=== PATIENT | female | born 1990 | race Hispanic/Latino ===

== ENCOUNTER 2019-09-24 16:27 | Inpatient (IN) | payer BC ==
[2019-09-24] MEDS ORDERED: BUTORPHANOL 1 MG/ML INJ IV PRN (17:29)
[2019-09-24] MEDS ORDERED: Ringers Lactate 1,000 ML IV PRN (17:29)
[2019-09-24] MEDS ORDERED: CARBOPROST TROME 250 MCG/ML IM PRN (17:29)
[2019-09-24] MEDS ORDERED: METHYLERGONOVINE 0.2MG/ML AMP IM PRN (17:29)
[2019-09-24] MEDS ORDERED: PROMETHAZINE INJ 25 MG/ML AMP IM PRN (17:29)
[2019-09-24] MEDS ORDERED: Ringers Lactate 1,000 ML IV SCH (18:00)
[2019-09-24] MEDS ORDERED: OXYTOCIN/LR 20 UNIT/1,000 ML BAG IV SCH (18:00)
[2019-09-24 18:17] VITALS: BMI 29.9
[2019-09-24 18:17] LABS: Absolute Lymphocytes (CBC) 1.9 K/uL (0.7-4.9); Basophils % 0.4 % (0-1.3); Hematocrit 34.5 % (36.0-45.0); Lymphocytes % 17.7 % (15.3-44.8); MPV 9.7 fL (7.6-11.3); RBC Red Blood Cell Count 3.78 M/uL (3.86-4.86)
[2019-09-24 18:27] LABS: Urine Appearance CLEAR; Urine Bilirubin NEGATIVE (NEG); Urine Blood NEGATIVE (NEG); Urine Color YELLOW; Urine Glucose NEGATIVE (NEG); Urine Protein NEGATIVE (NEG); Urine Specific Gravity 1.025 (1.005-1.030)
[2019-09-24 18:41] LABS: Urine Microscopic Reflex NO UMIC
[2019-09-24 21:14] LABS: RPR (Rapid Plasma Reagin) NON-REACT (NON-REACT)
--- NOTE | 2019-09-24 21:38 | CON ---
A 28-year-old 3, para 2, at 38 weeks 3 days. Seen in the office, noted to be 2.5 to 3 cm. A t her request, stripping of membranes was performed. Patient states that after that she has been hav ing cramps all day long and thinks she may have lost her mucus plug. She is 3.5 cm. The cervix is s till somewhat posterior but 50% effaced where the baby is -1 to -2 station. We will put her on the m onitor. If she is sherly even every 6 minutes or so, we will keep her because she is going to g o in the labor soon. If the contractions are basically scattered had more than 8-10 minutes, we will probably send her home and let her come back later when the contraction pattern is more regular. We will see during the next half hour to an hour what the pattern of contractions looks like. TANNER/BENY Voice ID: [id number] Report ID: [id number]
[2019-09-25] MEDS ORDERED: FENTANYL/BUPIVACAINE/NS/PF 200 MCG/100 ML BAG EP ONE (03:58)
[2019-09-25] MEDS ORDERED: METHYLERGONOVINE 0.2MG/ML AMP IM ONE (04:05)
[2019-09-25] MEDS ORDERED: LIDOCAINE 1% 20 ML MDV ONE (04:05)
[2019-09-25] MEDS ORDERED: CARBOPROST TROME 250 MCG/ML IM ONE (04:05)
[2019-09-25] MEDS ORDERED: FENTANYL CITR 100 MCG/2 ML ONE (04:44)
[2019-09-25] MEDS ORDERED: BUPIVACAINE 0.25% PF 30 ML VIAL ONE (04:44)
[2019-09-25] MEDS ORDERED: BUPIVACAINE 0.25% PF 10 ML VIAL ONE (04:46)
[2019-09-25] MEDS ORDERED: BISACODYL 10 MG RECTAL SUPP RECT PRN (07:21)
[2019-09-25] MEDS ORDERED: DOCUSATE NA/SENNA CONC 1 TAB PO PRN (07:21)
[2019-09-25] MEDS ORDERED: Oxycodone HCl/Acetaminophen 1 TAB TAB PO PRN (07:21)
[2019-09-25] MEDS ORDERED: ACETAMINOPHEN 500 MG TAB PO PRN (07:21)
[2019-09-25] MEDS ORDERED: DIPHENHYDRAMINE 25 MG TAB/CAP PO PRN (07:21)
[2019-09-25] MEDS ORDERED: IBUPROFEN 600 MG TAB PO PRN (07:21)
[2019-09-25] MEDS ORDERED: OXYTOCIN/LR 20 UNIT/1,000 ML BAG IV SCH (08:00)
[2019-09-25] MEDS: METHYLERGONOVINE 0.2 MG TAB PO PRN ×4 (09:00→21:20)
[2019-09-25] MEDS: Oxycodone HCl/Acetaminophen 1 TAB TAB PO PRN ×3 (10:17→21:20)
--- NOTE | 2019-09-25 11:16 | PREOPHP ---
Date of Admission: 09/24/2019 A 28-year-old 3, para 2, 38 weeks and 3 days, who was admitted for early labor, now 38 weeks and 4 days. Has progressed to 8 cm, 100% effaced, 0 station. She has her epidural in. She is Rh positive, immune to Rubella. Negative beta strep screen. She is on light Pitocin at 10 milliunits. The epidural is very effective. We will see if she can push effectively with the epidural __set where it is. If so, we will let her stay there, otherwise we will down it back a little bit. Anticipate delivery relatively soon. TANNER/BENY Voice ID: [id number] ADRIAN
[2019-09-25] MEDS ORDERED: Ringers Lactate 1,000 ML IV ONE (17:24)
--- NOTE | 2019-09-25 18:22 | OP ---
Surgeon: Juvenal Bowen MD A 28-year-old 3, para 2, at 38 weeks and 3 days, on admission, 38 weeks 4 days on delivery, c jasper in with early labor, noted to be 3.5 cm. Spontaneous rupture of membranes occurred at approximat onesimo 3-4 cm. Patient received epidural anesthesia, which gave good effect during remainder of labor a nd delivery. Second stage of approximately 1-1/2 hour, spontaneous vaginal delivery of an estimated 7.5 to 8 pounds female, Apgars 9 and 9. No episiotomy. No laceration. Schultze delivery of the nehemias centa, which was inspected and noted to be intact and normal. Mild uterine hypotonus, 0.2 mg of Meth ergine IM and massage. Estimated blood loss 400 mL. Rh positive, immune to Rubella. Negative beta strep screen. Tolerated all procedures well. Final Diagnoses: Term intrauterine at 38 weeks 4 days at the delivery. Epidural anesthesi a, mild uterine hypotonia. TANNER/BENY Voice ID: [id number] Report ID: [id number]
[2019-09-26 06:18] VITALS: TEMP 98.1
[2019-09-26] MEDS: Oxycodone HCl/Acetaminophen 1 TAB TAB PO PRN (07:38)
[2019-09-26 07:47] VITALS: BP 104/71
[2019-09-26] MEDS ORDERED: INFLUENZA VACCINE (for 3y+) 0.5 ML DOSE IMVAC ONE (09:30)
[2019-09-26] MEDS ORDERED: Tdap (Diph,Pertuss(Acell),Tet Vac) 0.5 ML SYR IMVAC ONE (09:30)
[2019-09-29 22:45] LABS: HBsAG Nonreactive (Nonreactive)
== END 2019-09-26 10:35 | disposition home or self-care (01) | DRG 833 ==
LOC: L&D 16:27 → 2ND-WC 17:26
PROVIDERS: ADMIT Specialist; ATTEND Specialist
PROC: 00HU33Z Insertion of Infusion Device into Spinal Canal, Percutaneous Approach (ICD-10-PCS; principal; 2019-09-25)
DX: O62.2 Other uterine inertia (principal); Z3A.38 38 weeks gestation of pregnancy; Z37.0 Single live birth
CPT/HCPCS: 36415; 81003; 85025; 86592; 86901; 87340; 90471; 90715; J0595; J2210; J2550; J2590; J3010; J7120; Q2035

== ENCOUNTER 2022-05-19 04:06 | Inpatient (IN) | payer BC ==
[~2022-05-19 04:06] MED LIST: BUTORPHANOL 1 MG/ML INJ IV PRN; METHYLERGONOVINE 0.2MG/ML AMP IM PRN; PROMETHAZINE INJ 25 MG/ML AMP IM PRN; Ringers Lactate 1,000 ML IV PRN; Ringers Lactate 1,000 ML IV SCH
[2022-05-19 05:15] LABS: Absolute Lymphocytes (CBC) 2.2 K/uL (0.7-4.9); Lymphocytes % 26.7 % (15.3-44.8); MCV 84.2 fL (80-100); MPV 8.6 fL (7.6-11.3); RBC Red Blood Cell Count 3.92 M/uL (3.86-4.86)
[2022-05-19 05:18] LABS: Specific Gravity 1.025 (1.005-1.030); Urine Bilirubin Negative (Negative); Urine Blood Negative (Negative); Urine Clarity Clear (Clear); Urine Color Yellow (Yellow); Urine Glucose Negative (Negative); Urine Protein 1+ (Negative); Urine pH 6.5 (5.0-7.0)
[2022-05-19] MEDS ORDERED: CARBOPROST TROME 250 MCG/ML IM ONE (05:24)
[2022-05-19] MEDS ORDERED: OXYTOCIN/LR 20 UNIT/1,000 ML BAG IV SCH ×2 (05:30→11:00)
[2022-05-19] MEDS ORDERED: OXYTOCIN 10 UNIT/ML ML ONE (05:36)
[2022-05-19 05:55] LABS: Urine Bacteria >50 /HPF (<20); Urine RBC <5 /HPF (None Seen)
[2022-05-19] MEDS ORDERED: FENTANYL CITR 100 MCG/2 ML ONE (07:46)
[2022-05-19] MEDS ORDERED: FENTANYL/BUPIVACAINE/NS/PF 0 MCG/0 ML BAG EP ONE (07:48)
[2022-05-19] MEDS ORDERED: ROPIVACAINE HCL 100 ML EP ONE (07:49)
[2022-05-19] MEDS ORDERED: 0.2% ROPIVACAINE (200 MG/100 ML) BAG EP ONE (08:00)
[2022-05-19 08:30] VITALS: BMI 30.9
[2022-05-19] MEDS ORDERED: FENTANYL CITR 100 MCG/2 ML IV ONE (08:30)
--- NOTE | 2022-05-19 09:13 | PREOPHP ---
Date of Admission: 05/19/2022 History Of Present Illness: Holly Garay is a 31-year-old, 4, para 3, at 39 weeks for i nduction. She is 2.5 cm, still slightly posterior, 50% effaced, vertex, -1 station. Rupture of memb ranes, clear fluid. FHTs normal, reactive. Labor talk given. She is requesting epidural. We will probably go ahead and institute that now. Family History: Maternal grandmother with twins. No cancer in the family. No diabetes, stroke, hea rt attacks, or any type of major medical problems. Allergies: NO ALLERGIES. Medications: vitamins prior to admission. Physical Examination: HEENT: Clear. Pupils equal, round, reactive to light and accommodation. Conjunctivae well perfused . No oral, lingual, or buccal lesions. Chest and Lungs: Clear. Heart: Without murmurs, thrills, heaves, or rubs. Breasts: Without masses. Abdomen: Term size. Extremities: Clear without edema, cyanosis, or clubbing. Pelvic Exam: As stated 3 to 3.5 cm, 50%, still slightly posterior, -1 station. Assessment And Plan: Anticipate delivery relatively soon. TANNER/BENY Voice ID: [id number]
[2022-05-19] MEDS ORDERED: ROPIVACAINE HCL 20 ML ONE (09:57)
[2022-05-19] MEDS ORDERED: ROPIVACAINE HCL 0.2% 20ML AMP IV ONE (10:00)
[2022-05-19] MEDS ORDERED: LIDOCAINE 1% 20 ML MDV ONE (10:21)
[2022-05-19] MEDS ORDERED: DIPHENHYDRAMINE 25 MG TAB/CAP PO PRN (10:37)
[2022-05-19] MEDS ORDERED: DOCUSATE NA/SENNA CONC 1 TAB PO PRN (10:37)
[2022-05-19] MEDS ORDERED: Oxycodone HCl/Acetaminophen 1 TAB TAB PO PRN (10:37)
[2022-05-19] MEDS ORDERED: BISACODYL 10 MG RECTAL SUPP RC PRN (10:37)
[2022-05-19] MEDS ORDERED: ACETAMINOPHEN 500 MG TAB PO PRN (10:37)
[2022-05-19] MEDS: METHYLERGONOVINE 0.2 MG TAB PO PRN ×3 (11:31→20:49)
[2022-05-19] MEDS: IBUPROFEN 600 MG TAB PO PRN (13:54)
[2022-05-19] MEDS ORDERED: Ringers Lactate 2,000 ML IV ONE (15:59)
--- NOTE | 2022-05-19 21:52 | DN ---
Surgeon: Juvenal Bowen MD 31-year-old 4, para 3, 39 weeks 3.5 cm this morning. Rupture of membranes, clear fluid. The patient requested and received epidural anesthesia, which gave good effect. Second stage of about 1 0 minutes. Spontaneous vaginal delivery of a 7 pounds 9 ounce female. Apgars 9 and 9. No episiotom y. No laceration. Schultze delivery of the placenta. Uterus contracted down well with IV drip Neno sonia and massage. Estimated blood loss 250 cc or less. Tolerated all procedures well. Rh positive, immune to rubella, negative strep, negative COVID. Final Diagnoses: Term intrauterine 39 weeks, labor induction, vaginal delivery at 39 weeks . Epidural anesthesia. TANNER/BENY Voice ID: [id number] Report ID: [id number]
[2022-05-19 23:46] LABS: RPR (Rapid Plasma Reagin) NON-REACT (NON-REACT)
[2022-05-20] MEDS: METHYLERGONOVINE 0.2 MG TAB PO PRN (00:47)
[2022-05-20] MEDS: Oxycodone HCl/Acetaminophen 1 TAB TAB PO PRN ×2 (04:22→10:07)
--- NOTE | 2022-05-20 08:12 | DS ---
Hospital Course: Holly Garay is a 31-year-old, 4, para 3, 39 weeks gestation, delivere d a 7-pound 9-ounce female, Apgars 9 and 9. Epidural anesthesia. No episiotomy. No lacerations wor thy of suturing. Schultze delivery of the placenta, inspected and noted to be intact and normal. Le ss than 250 cc blood loss at the time of delivery. ; afebrile, ambulating, voiding. Lochi a is normal. She was put on Methergine prophylactically as bleeding was slightly more than desirable , but bleeding has been completely normal since then. She has had her Tdap immunization and flu shot offered through my office and she wishes it. She knows to report any fever of 100 degrees or more s evere pain heavy bleeding, she will call the office for a routine followup somewhere between 4 and 6 weeks from today. The patient is Rh positive, immune to rubella, negative strep, negative COVID and no post epidural problems. Requires no analgesics on dismissal. Final Diagnoses: Term intrauterine 39 weeks, vaginal delivery, epidural anesthesia. TANNER/BENY Voice ID: [id number] Report ID: [id number]
[2022-05-20] MEDS ORDERED: TDAP (DIPHTH,PERTUSS(ACELL),TET VAC) 0.5 ML VIAL IMVAC ONE ×2 (11:36→11:55)
[2022-05-20] MEDS: IBUPROFEN 600 MG TAB PO PRN (11:43)
[2022-05-20 12:22] VITALS: BP 109/64; TEMP 97.6
--- NOTE | 2022-05-24 10:51 | DN ---
Surgeon: Juvenal Bowen MD 23-year-old, 3, para 2, 38 weeks' gestation, followed antepartum at [facility], dropped into our fa cility in active rapidly advancing labor, 7 to 8 cm on admission, +1 station, bulging membranes, cont racting every 2 minutes. When I arrived, the patient was 8.5 to 9 cm and rupture of membranes was pe rformed, clear fluid. She had been offered penicillin. She did not know her strep status, but decli phuc and it would have not been very helpful anyway as she delivered within a few minutes after gettin g here. She delivered spontaneously of a 7-pound estimated weight female, Apgars 9 and 9. No episio fredy. No laceration. Schultze delivery of the placenta was inspected and noted to be intact and nor mal. Uterus contracted down very well with IV drip Pitocin and massage. Estimated blood loss 150 cc or less. All labs are pending at this time. Of course, we will offer Tdap shot if she has not had it and any appropriate immunizations that are requested or needed. Final Diagnoses: Term intrauterine at 38 weeks, drop in delivery from [facility] on admit for va ginal delivery at 38 weeks. TANNER/CAROLL Voice ID: [id number] Report ID: [id number]
== END 2022-05-20 12:00 | disposition home or self-care (01) | DRG 807 ==
LOC: 2ND-WC 04:06 → EDSTATUS 16:56
PROVIDERS: ADMIT Specialist; ATTEND Specialist
PROC: 10E0XZZ Delivery of Products of Conception, External Approach (ICD-10-PCS; principal; 2022-05-19)
PROC: 10907ZC Drainage of Amniotic Fluid, Therapeutic from Products of Conception, Via Natural or Artificial Opening (ICD-10-PCS; 2022-05-19)
PROC: 3E033VJ Introduction of Other Hormone into Peripheral Vein, Percutaneous Approach (ICD-10-PCS; 2022-05-19)
DX: O80 Encounter for full-term uncomplicated delivery (principal); Z37.0 Single live birth; Z3A.39 39 weeks gestation of pregnancy; Z20.822 Contact with and (suspected) exposure to COVID-19
CPT/HCPCS: 36415; 81001; 85025; 86592; 86901; 87086; 87088; 87340; J0595; J2210; J2590; J2795; J3010; J7120; U0003